=== PATIENT | female | born 1990 | race Caucasian/White ===

== ENCOUNTER → 2016-08-09 | Outpatient (CLI) | payer MEDICARE, OTHER ==
--- NOTE | 2016-08-09 10:24 | US ---
EXAMINATION TYPE: US OB <= 14 wk fetus DATE OF EXAM: 08/09/2016 9:49 AM COMPARISON: NONE CLINICAL HISTORY: Z34.00 Supervision of normal first . Positive beta-hCG test EXAM PERFORMED: Transabdominal (TA) pelvic ultrasound EXAM MEASUREMENTS: GESTATIONAL AGE / DATING Dates by LMP: (12 weeks/1 days) EDC: 02/20/2017 Dates by Current Scan: (12 weeks/3 days) EDC: 02/18/2017 MATERNAL ANATOMY Uterus: 12.7 x 9.0 x 5.9 cm Right Ovary: 2.9 x 1.5 x 1.4 cm Left Ovary: 2.7 x 1.2 x 1.4 cm Post CDS / Adnexa: no free fluid GESTATION / SURVEY CRL: 5.9 cm (12 weeks/3 days) MSD: not measured Yolk Sac (normal less than 6mm): not seen Heart Rate: 152 bpm Rhythm: Normal IUP: Viable IUP Date of LMP: 05/16/2016 Beta HcG (if available): not available TECHNOLOGIST IMPRESSION: single live IUP measuring 12 weeks 3 days Single live intrauterine gestation is confirmed as gestational sac and pole are seen. Yolk sac is not clearly identified. No free fluid is seen in pelvic cul-de-sac. Both ovaries are present. No suspicious extraovarian adnexal masses noted. IMPRESSION: Single live intrauterine gestation is identified. Mean crown-rump length is 5.9 cm corresponding to 1 2 weeks 3 day old fetus.
== END | disposition home or self-care (01) ==
LOC: RADUSWWP 08:57
PROVIDERS: ATTEND Obstetrics & Gynecology
DX: Z34.01 Encounter for supervision of normal first pregnancy, first trimester (principal); Z3A.12 12 weeks gestation of pregnancy
CPT/HCPCS: 76801

== ENCOUNTER 2016-11-04 16:06 | Emergency (ER) | payer MEDICARE, OTHER ==
[2016-11-04] MEDS ORDERED: SODIUM CHLORIDE 0.9% 1,000 ML IV STA (17:10)
--- NOTE | 2016-11-04 18:01 | ED ---
Dizziness HPI - General Chief Complaint: Dizziness Stated Complaint: Dizziness Time Seen by Provider: 11/04/16 17:09 Source: patient, RN notes reviewed, old records reviewed Mode of arrival: wheelchair Limitations: no limitations - History of Present Illness Initial Comments: This is a 26-year-old female with chief complaint of dizziness when she stands up. Patient states this only occurred for the past day. She reports that yesterday and today she did have a couple episodes of vomiting and diarrhea. She reports that she's not been able to drink very much fluid. Patient states that she has no fever or chills. She denies any chest pain or shortness of breath. Patient states that this is her second . This is her first resulted in a miscarriage. Patient denies any abdominal pain, dysuria, hematuria, back pain, headache, vision changes. Patient reports that her dizziness is worse with standing for long periods of time. She states that the room is not spinning but she just feels lightheaded. - Related Data Home Medications Medication Instructions Recorded Confirmed Metoclopramide [Reglan] 10 mg PO DAILY PRN 11/04/16 11/04/16 Pnv with Ca,No.72/Iron/FA 1 tab PO DAILY 11/04/16 11/04/16 [ Plus Tablet] Pseudoephedrine HCl [Sudafed] 60 mg PO Q4H PRN 11/04/16 11/04/16 diphenhydrAMINE HCL [Benadryl] 25 mg PO Q8H PRN 11/04/16 11/04/16 Allergies Allergy/AdvReac Type Severity Reaction Status Date / Time No Known Allergies Allergy Verified 11/04/16 17:28 Review of Systems ROS Statement: Those systems with pertinent positive or pertinent negative responses have been documented in the HPI. ROS Other: All systems not noted in ROS Statement are negative. Past Medical History Additional Past Medical History / Comment(s): Hepatitis C, MS History of Any Multi-Drug Resistant Organisms: None Reported Past Psychological History: Anxiety, Bipolar, PTSD Smoking Status: Current every day smoker Past Alcohol Use History: None Reported Past Drug Use History: None Reported General Exam - General Exam Comments Initial Comments: Well-appearing 26-year-old female. Patient does not appear to be in any acute distress. Limitations: no limitations General appearance: alert, in no apparent distress Head exam: Present: atraumatic, normocephalic, normal inspection Eye exam: Present: normal appearance, PERRL, EOMI. Absent: scleral icterus, conjunctival injection, periorbital swelling ENT exam: Present: normal exam, mucous membranes moist Neck exam: Present: normal inspection. Absent: tenderness, meningismus, lymphadenopathy Respiratory exam: Present: normal lung sounds bilaterally. Absent: respiratory distress, wheezes, rales, rhonchi, stridor Cardiovascular Exam: Present: regular rate, normal rhythm, normal heart sounds. Absent: systolic murmur, diastolic murmur, rubs, gallop, clicks GI/Abdominal exam: Present: soft, normal bowel sounds, other (Protuberant abdomen consistent with 24 weeks .). Absent: distended, tenderness, guarding, rebound, rigid Extremities exam: Present: normal inspection, full ROM, normal capillary refill. Absent: tenderness, pedal edema, joint swelling, calf tenderness Back exam: Present: normal inspection Neurological exam: Present: alert, oriented X3, CN II-XII intact Psychiatric exam: Present: normal affect, normal mood Skin exam: Present: warm, dry, intact, normal color. Absent: rash Course Vital Signs 11/04/16 11/04/16 11/04/16 16:13 17:27 18:55 Temperature 98.1 F Pulse Rate 102 H 98 Pulse Rate [ 103 H Sitting [employer]] Pulse Rate [ 105 H Standing] Pulse Rate [ 100 Supine [employer]] Respiratory 20 18 20 Rate Blood Pressure 142/74 115/65 Blood Pressure 129/75 [Right Arm Standing] Blood Pressure 119/65 [Right Arm Supine] Blood Pressure 117/75 [Sitting] O2 Sat by Pulse 98 98 Oximetry 11/04/16 20:15 Temperature 97.4 F L Pulse Rate 99 Pulse Rate [ Sitting [employer]] Pulse Rate [ Standing] Pulse Rate [ Supine [employer]] Respiratory 16 Rate Blood Pressure 127/77 Blood Pressure [Right Arm Standing] Blood Pressure [Right Arm Supine] Blood Pressure [Sitting] O2 Sat by Pulse 97 Oximetry Medical Decision Making - Medical Decision Making Patient is a well-appearing 26-year-old female chief complaint of 1 day of dizziness. She did have a multiple doses of vomiting and diarrhea yesterday. She reports that she's not been staying hydrated. Patient reports that the dizziness is worse with more prolonged periods of standing. Patient has negative orthostatic. Patient given IV fluids and reports she feels much better. She reports taht her dizziness has subsided. Patient agrees with treatment plan and will comply. - Lab Data Result diagrams: 11/04/16 18:00 11/04/16 18:00 Lab Results 11/04/16 11/04/16 11/04/16 Range/Units 18:00 18:00 18:00 WBC 13.1 H (3.8-10.6) k/uL RBC 3.77 L (3.80-5.40) m/uL Hgb 12.0 (11.4-16.0) gm/dL Hct 35.6 (34.0-46.0) % MCV 94.5 (80.0-100.0) fL MCH 31.8 (25.0-35.0) pg MCHC 33.6 (31.0-37.0) g/dL RDW 14.0 (11.5-15.5) % Plt Count 206 (150-450) k/uL Neutrophils % 77 % Lymphocytes % 15 % Monocytes % 5 % Eosinophils % 1 % Basophils % 0 % Neutrophils # 10.0 H (1.3-7.7) k/uL Lymphocytes # 2.0 (1.0-4.8) k/uL Monocytes # 0.6 (0-1.0) k/uL Eosinophils # 0.2 (0-0.7) k/uL Basophils # 0.0 (0-0.2) k/uL Sodium 135 L (137-145) mmol/L Potassium 4.0 (3.5-5.1) mmol/L Chloride 106 (98-107) mmol/L Carbon Dioxide 20 L (22-30) mmol/L Anion Gap 9 mmol/L BUN 8 (7-17) mg/dL Creatinine 0.46 L (0.52-1.04) mg/dL Est GFR (MDRD) Af Amer >60 (>60 ml/min/1.73 sqM) Est GFR (MDRD) Non-Af >60 (>60 ml/min/1.73 sqM) Glucose 87 (74-99) mg/dL Calcium 9.7 (8.4-10.2) mg/dL Total Bilirubin 0.5 (0.2-1.3) mg/dL AST 51 H (14-36) U/L ALT 75 H (9-52) U/L Alkaline Phosphatase 64 (38-126) U/L Troponin I <0.012 (0.000-0.034) ng/mL Total Protein 7.0 (6.3-8.2) g/dL Albumin 3.6 (3.5-5.0) g/dL Urine Color Urine Appearance (Clear) Urine pH (5.0-8.0) Ur Specific [place] (1.001-1.035) Urine Protein (Negative) Urine Glucose (UA) (Negative) Urine Ketones (Negative) Urine Blood (Negative) Urine Nitrite (Negative) Urine Bilirubin (Negative) Urine Urobilinogen (<2.0) mg/dL Ur Leukocyte Esterase (Negative) 11/04/16 Range/Units 18:00 WBC (3.8-10.6) k/uL RBC (3.80-5.40) m/uL Hgb (11.4-16.0) gm/dL Hct (34.0-46.0) % MCV (80.0-100.0) fL MCH (25.0-35.0) pg MCHC (31.0-37.0) g/dL RDW (11.5-15.5) % Plt Count (150-450) k/uL Neutrophils % % Lymphocytes % % Monocytes % % Eosinophils % % Basophils % % Neutrophils # (1.3-7.7) k/uL Lymphocytes # (1.0-4.8) k/uL Monocytes # (0-1.0) k/uL Eosinophils # (0-0.7) k/uL Basophils # (0-0.2) k/uL Sodium (137-145) mmol/L Potassium (3.5-5.1) mmol/L Chloride (98-107) mmol/L Carbon Dioxide (22-30) mmol/L Anion Gap mmol/L BUN (7-17) mg/dL Creatinine (0.52-1.04) mg/dL Est GFR (MDRD) Af Amer (>60 ml/min/1.73 sqM) Est GFR (MDRD) Non-Af (>60 ml/min/1.73 sqM) Glucose (74-99) mg/dL Calcium (8.4-10.2) mg/dL Total Bilirubin (0.2-1.3) mg/dL AST (14-36) U/L ALT (9-52) U/L Alkaline Phosphatase (38-126) U/L Troponin I (0.000-0.034) ng/mL Total Protein (6.3-8.2) g/dL Albumin (3.5-5.0) g/dL Urine Color Light Yellow Urine Appearance Clear (Clear) Urine pH 6.5 (5.0-8.0) Ur Specific [place] 1.008 (1.001-1.035) Urine Protein Negative (Negative) Urine Glucose (UA) Negative (Negative) Urine Ketones Negative (Negative) Urine Blood Negative (Negative) Urine Nitrite Negative (Negative) Urine Bilirubin Negative (Negative) Urine Urobilinogen <2.0 (<2.0) mg/dL Ur Leukocyte Esterase Negative (Negative) 11/04/16 18:02 EKG shows normal sinus rhythm. Ventricular rate 94 bpm. UT interval 140 ms. QRS ration edema 6. QT QTC 3/437. No evidence of ST elevation or T-wave inversion. No evidence of atrial or ventricular arrhythmias. Disposition Clinical Impression: Positional lightheadedness, Disposition: HOME SELF-CARE Condition: Good Instructions: Dizziness (ED) Additional Instructions: Patient advised to rest, remain hydrated. Follow-up with your primary care provider. Return to the emergency department if any alarming signs or symptoms occur. Referrals: Jing Castrejon MD [Primary Care Provider] - 1-2 days Time of Disposition: 19:31
[2016-11-04 18:18] LABS: Basophils % (A) 0 %; CH 32.8; Eosinophils # (A) 0.2 k/uL (0-0.7); Eosinophils % (A) 1 %; HCT 35.6 % (34.0-46.0); HDW 3.19; Luc # (Auto) 0.26; Luc % (Auto) 2; Lymphocytes % (A) 15 %; MCH 31.8 pg (25.0-35.0); MCHC 33.6 g/dL (31.0-37.0); MCV 94.5 fL (80.0-100.0); Mean Platelet Volume 9.4; Monocytes # (A) 0.6 k/uL (0-1.0); Monocytes % (A) 5 %; Neutrophils % (A) 77 %; RBC 3.77 m/uL (3.80-5.40); WBC 13.1 k/uL (3.8-10.6); WBC (Perox) 13.73
[2016-11-04 18:20] LABS: Appearance,Urine Clear (Clear); Bilirubin,Urine Negative (Negative); Glucose,Urine (UA) Negative (Negative); Ketones,Urine Negative (Negative); Leukocyte Esterase,Urine Negative (Negative); Nitrite,Urine Negative (Negative); PH, Urine 6.5 (5.0-8.0); Protein,Urine Negative (Negative); Specific Gravity,Urine 1.008 (1.001-1.035); UA Billing (MACRO vs. MICRO) CHEM; Urobilinogen,Urine <2.0 mg/dL (<2.0)
[2016-11-04 18:26] LABS: ALT 75 U/L (9-52); AST 51 U/L (14-36); Alkaline Phosphatase 64 U/L (38-126); Anion Gap 9 mmol/L; Blood Urea Nitrogen 8 mg/dL (7-17); Calcium 9.7 mg/dL (8.4-10.2); Carbon Dioxide 20 mmol/L (22-30); Chloride 106 mmol/L (98-107); Glucose 87 mg/dL (74-99); Non-African American GFR(MDRD) >60 (>60 ml/min/1.73 sqM); Sodium 135 mmol/L (137-145); Total Bilirubin 0.5 mg/dL (0.2-1.3)
[2016-11-04 20:16] VITALS: BP 127/77; PULSE 99; RESP 16; TEMP 97.4
== END 2016-11-04 20:15 | disposition home or self-care (01) ==
LOC: EC 16:06
DX: O99.89 Other specified diseases and conditions complicating pregnancy, childbirth and the puerperium (principal); R42 Dizziness and giddiness; O21.9 Vomiting of pregnancy, unspecified; R19.7 Diarrhea, unspecified; O99.332 Smoking (tobacco) complicating pregnancy, second trimester; F17.200 Nicotine dependence, unspecified, uncomplicated; Z79.899 Other long term (current) drug therapy; Z3A.24 24 weeks gestation of pregnancy
CPT/HCPCS: 36415; 80053; 81003; 84484; 85025; 93005; 96360; 96361; 99284

== ENCOUNTER → 2016-11-21 | Outpatient (CLI) | payer MEDICARE, OTHER ==
--- NOTE | 2016-11-09 19:30 | US ---
EXAMINATION TYPE: US OB anatomy transabd DATE OF EXAM: 11/09/2016 5:35 PM COMPARISON: US HISTORY: Z34.90 supervision of normal Anatomy survey TECHNIQUE: Transabdominal (TA) EXAM MEASUREMENTS: GESTATIONAL AGE / DATING Physician Established: (25 weeks/4 days) EDC: 02/18/2017 Dates by LMP: (25 weeks/2 days) EDC: 02/20/2017 Dates by First Scan: (25 weeks/4 days) EDC: 02/18/2017 Dates by Current Scan for: (27 weeks/0 days) EDC: 02/08/2017 SURVEY IUP: Single PLACENTA: fundal anterior; narrow portion noted mid placenta PREVIA: No previa ISAK: 16.3 cm Normal CERVICAL LENGTH (transabdominal: norm > 3.0cm): 3.8 cm BIOMETRY PRESENTATION: Breech LIE: Oblique BPD: 7.0 cm 28 weeks / 1 day HC: 25.4 cm 27 weeks / 4 days AC: 23.3 cm 27 weeks / 5 days FL: 5.0 cm 26 weeks / 5 days ESTIMATED WEIGHT IN GRAMS: 1067.0 grams ESTIMATED WEIGHT IN LBS/OZ: 2 lbs. 6 oz. WEIGHT PERCENTAGE BASED ON ESTABLISHED DATE: >97% % HC/AC: 1.09 Normal FL/AC: 21.3 Normal HEART RATE: 157 bpm RHYTHM: Normal ANATOMY SEEN (within normal limits): * Lateral Vent (< 1 cm) 0.9 cm * Cisterna Magna (< 1.1 cm) 0.57 cm * Nuchal Fold (< 0.6 cm) 0.5 cm * Cerebellum (varies with age) 2.9 cm Choroid Plexus (bilateral) Midline Falx Four Chamber Heart Stomach Situs Diaphragm Kidneys (bilateral) Bladder Cord Insert Three Vessel Cord Longitudinal Spine Transverse Spine Arms (bilateral) Legs (bilateral) ANATOMY SEEN (does not appear within normal limits): ANATOMY NOT SEEN: due to large body habitus and head facing posteriorly Cavus Septi Pellucidi Outflow tracts: LVOT/RVOT Nose / Lips MATERNAL WALL MEASUREMENT: 4.9 cm from skin to anterior uterine wall (if exam limited due to body lemus bitus). Single, live IUP,27 weeks/0 days, EDC: 02/08/2017; HR 157bpm. Patient is scheduled for OB callback for anatomy not seen due to active fetus and large maternal body habitus. IMPRESSION: weight is more than 97 percentile compared to the old exam of 08/09/2016. Macrosomia should be co nsidered.
--- NOTE | 2016-11-21 17:37 | US ---
EXAMINATION TYPE: US OB Call Back DATE OF EXAM: 11/21/2016 1:49 PM COMPARISON: Prior ultrasound 09 Nov 2016 CLINICAL HISTORY: OB Call Back. GESTATIONAL AGE / DATING Dates by Initial Survey Scan: (27 weeks/2 days) EDC: 02/18/17 HEART RATE: 147 bpm RHYTHM: Arrhythmia ANATOMY SEEN (second anatomic survey look): Cavus Septi Pellucidi: Outflow tracts:? LVOT/RVOT, the outflow tracts are somewhat obscured. Nose / Lips: MATERNAL WALL MEASUREMENT: 5.9 cm from skin to anterior uterine wall (if exam limited due to body lemus bitus). Very active fetus. IMPRESSION: Exam is somewhat limited. Additional findings above.
== END | disposition home or self-care (01) ==
LOC: RADUSWWP 11-09 16:22
PROVIDERS: ATTEND Obstetrics & Gynecology
DX: O36.62X0 Maternal care for excessive fetal growth, second trimester, not applicable or unspecified (principal); Z3A.25 25 weeks gestation of pregnancy
CPT/HCPCS: 76811

== ENCOUNTER 2017-01-02 19:35 | Outpatient (CLI) | payer MEDICARE, OTHER ==
[2017-01-02 20:05] VITALS: BP 140/80; PULSE 121; RESP 18; TEMP 96.2
[2017-01-02 20:30] LABS: Basophils % (A) 0 %; CH 32.3; CHCM 36.3; Eosinophils # (A) 0.1 k/uL (0-0.7); Eosinophils % (A) 1 %; HCT 33.6 % (34.0-46.0); HDW 3.43; HGB 12.7 gm/dL (11.4-16.0); Luc # (Auto) 0.21; Luc % (Auto) 2; Lymphocytes % (A) 16 %; MCHC 37.9 g/dL (31.0-37.0); MCV 89.9 fL (80.0-100.0); Mean Platelet Volume 10.7; Monocytes # (A) 0.6 k/uL (0-1.0); Monocytes % (A) 5 %; Neutrophils # (A) 9.6 k/uL (1.3-7.7); Neutrophils % (A) 77 %; Poikilocytosis Slight; RBC 3.73 m/uL (3.80-5.40); RDW 14.8 % (11.5-15.5); WBC 12.4 k/uL (3.8-10.6); WBC (Perox) 12.47
--- NOTE | 2017-01-02 21:50 | US ---
EXAMINATION TYPE: US OB >= 14 wk fetus DATE OF EXAM: 01/02/2017 COMPARISON: None CLINICAL HISTORY: bleedingBleeding TECHNIQUE: Transabdominal (TA) GESTATIONAL AGE / DATING Physician Established: (33 weeks/2 days) EDC: 02/18/2017 Dates by LMP: (33 weeks/0 days) EDC: 02/20/2017 Dates by First Scan: (33 weeks/2 days) EDC: 02/18/2017 Dates by Current Scan: (34 weeks/0 days) EDC: 02/13/2017 SURVEY IUP: Single PLACENTA: Anterior PREVIA: No Previa ISAK: 14.0 cm Normal CERVICAL LENGTH (transabdominal: norm > 3.0cm): 4.2 cm BIOMETRY PRESENTATION: Vertex BPD: 8.7 cm 35 weeks / 0 days HC: 30.1 cm weeks / days AC: 31.4 cm 35 weeks / 2 days FL: 6.7 cm 34 weeks / 2 days ESTIMATED WEIGHT IN GRAMS: 2518 grams ESTIMATED WEIGHT IN LBS/OZS: 5 lbs. 9 oz. WEIGHT PERCENTAGE BASED ON ESTABLISHED DATES: 85% HC/AC: 0.96 Normal FL/AC: 21.24 Normal HEART RATE: 181 bpm . RHYTHM: Normal MATERNAL WALL MEASUREMENT: 4.8 cm from skin to anterior uterine wall (if exam limited due to body hab itus). Viable single IUP measuring 34 weeks 0 days with a heart rate of 181bpm and an estimated delivery edwar e of 02/13/2017. Amniotic fluid index is 7 cm. There is no evidence for IUGR. IMPRESSION: There is satisfactory growth compared to first exam of 08/09/2016.
--- NOTE | 2017-01-02 21:51 | US ---
EXAMINATION TYPE: US OB TV Cervical Measurement DATE OF EXAM: 01/02/2017 COMPARISON: US REASON FOR EXAM: Per Ordering Physician?this transvaginal scan is to assess the CERVICAL LENGTH for i ncompetence or funneling. GESTATIONAL AGE / DATING Physician Established: (33 weeks/2 days) EDC: 02/18/2017 MATERNAL/ SURVEY CERVICAL LENGTH (transvaginal: norm> 2.5cm): 2.5 cm HEART RATE: 179 bpm RHYTHM: Normal IMPRESSION: This limited exam shows the cervix is closed and measures 2.5 cm.
--- NOTE | 2017-01-05 12:10 | P.MSEPDOC ---
Presenting Problems - Arrival Data Date of Arrival on Unit: 01/02/17 Time of Arrival on Unit: 19:35 Mode of Transport: Portable - Complaint OB-Reason for Admission/Chief Complaint: Vaginal Bleeding Comment: vag bleeding after intercourse, DOM Medical History - Information : 3 Para: 0 Term: 0 : 0 Abortions: Spontaneous or Elective: 2 Number of Living Children: 0 - Gestational Age Expected Date of Delivery: 02/18/17 Gestational Age by MADONNA (wks/days): 33 Weeks and 5 Days - History Complications: GDM, Smoker, Hx. Substance Abuse, Other Comment: DOM- pt of Dr Perera, failed 1hr GTT and has not redone 3hr GTT, hx of IV heroin use but clean since 01/13/2016, smoker, hep C as of december 2015, takes benadryl and sudafed daily Review of Systems - Review of Systems Constitutional: No problems Breast: No problems ENT: No problems Cardiovascular: No problems Respiratory: No problems Gastrointestinal: No problems Genitourinary: No problems Musculoskeletal: No problems Neurological: No problems Skin: No problems Vital Signs - Temperature Temperature: 96.2 F Temperature Source: Temporal Artery Scan - Pulse Right Pulse Rate: 121 Pulse Assessment Method: Pulse Oximetry - Respirations Respiratory Rate: 18 - Blood Pressure Right Arm Blood Pressure: 140/80 Blood Pressure Mean: 100 Blood Pressure Source: Automatic Cuff Medical Screen Scoring (Pre) - Cervical Exam Dilation: Exam Deferred Effacement: Exam Deferred - Uterine Contractions Frequency: N/A Duration: N/A Intensity: N/A - Maternal Vital Signs Maternal Temperature: N/A Signs of Preeclampsia: N/A Maternal Respirations: N/A - Assessment Baseline FHR: 140 Heart Rate - NICHD Category: Category I (Normal) = 0 NST: Reactive Position: N/A - Total Score Total Score (Pre): 0 - Level of Risk Level of Risk: Low (0-5) Physician Notification (Pre) - Physician Notified Physician Notified Date: 01/02/17 Physician Notified Time: 20:02 Physician/Practitioner Notifed:: Dr Clark New Order Received: Yes - Notification Comment Comment: orders for IV, u/s, hep lock, cbc, type and screen, KB Disposition - Disposition Discharge Date: 01/02/17 Discharge Time: 22:15 I agree with the RN Medical Screening Exam: No Physician's MSE Comment: incomplete disposition documentation Risk & Benefit of care provided described in d/c instruction: No Diagnosis: 33 WEEKS GESTATION OF
== END 2017-01-02 22:20 | disposition home or self-care (01) ==
LOC: FBPOP 19:35
PROVIDERS: ATTEND Obstetrics & Gynecology
DX: O99.89 Other specified diseases and conditions complicating pregnancy, childbirth and the puerperium (principal); N93.0 Postcoital and contact bleeding; Z3A.33 33 weeks gestation of pregnancy; O24.419 Gestational diabetes mellitus in pregnancy, unspecified control; O99.333 Smoking (tobacco) complicating pregnancy, third trimester; O09.33 Supervision of pregnancy with insufficient antenatal care, third trimester; Z86.19 Personal history of other infectious and parasitic diseases; F11.21 Opioid dependence, in remission; Z79.899 Other long term (current) drug therapy
CPT/HCPCS: 59025; 84112; 86900; 86901; 85025; 86850; 76805; 76817; G0463; 99213

== ENCOUNTER → 2020-04-14 | Outpatient (CLI) | payer MEDICARE, OTHER | END | disposition home or self-care (01) | LOC: LABWHC1 10:10 | PROVIDERS: ATTEND Family Medicine | DX: R05 Cough (principal); R50.9 Fever, unspecified | CPT/HCPCS: U0003; C9803 ==

== ENCOUNTER → 2020-08-20 | Outpatient (CLI) | payer OTHER ==
[2020-08-23 12:49] VITALS: BMI 42.6
== END | disposition home or self-care (01) ==
LOC: DBWHC3 11:40
PROVIDERS: ATTEND Nurse Practitioner Family
DX: R63.5 Abnormal weight gain (principal); Z86.32 Personal history of gestational diabetes
CPT/HCPCS: 97802

== ENCOUNTER → 2021-01-27 | Outpatient (CLI) | payer OTHER ==
--- NOTE | 2021-01-27 10:04 | US ---
EXAMINATION TYPE: US abdomen complete DATE OF EXAM: 01/27/2021 COMPARISON: NONE CLINICAL HISTORY: 30-year-old female B19.20 Unspecified viral hepatitis C without hepat. FINDINGS: EXAM MEASUREMENTS: Liver Length: 20.7 cm Gallbladder Wall: 0.3 cm CBD: 0.4 cm Spleen: 14.3 cm Right Kidney: 11.5 x 4.5 x 5.4 cm Left Kidney: 11.0 x 4.8 x 5.3 cm Kindergartner notes:technical limitations due to patient's body habitus and overlying bowel content Pancreas: Obscured by bowel gas Liver: enlarged, attenuating, heterogeneous. The secondary limits assessment for focal lesions. Gallbladder: No abnormal gallbladder distention, wall thickening, pericholecystic fluid, or shadowin g calculi. Evidence for sonographic Gann's sign: no CBD: appears wnl Spleen: enlarged Right Kidney: no evidence of hydronephrosis Left Kidney: no evidence of hydronephrosis Upper IVC: Obscured by overlying bowel gas Abd Aorta: Obscured by overlying bowel gas IMPRESSION: 1. Hepatomegaly (20.7 cm) with severe hepatic steatosis. The altered echogenicity secondarily limits assessment for focal lesions by ultrasound. 2. No gallstones or biliary ductal dilatation.
== END | disposition home or self-care (01) ==
LOC: RADUSWWP 07:51
PROVIDERS: ATTEND Family Medicine
DX: K76.0 Fatty (change of) liver, not elsewhere classified (principal)
CPT/HCPCS: 76700

== ENCOUNTER → 2021-02-22 | Outpatient (CLI) | payer OTHER ==
--- NOTE | 2021-02-22 11:07 | US ---
EXAMINATION TYPE: US liver DATE OF EXAM: 02/22/2021 COMPARISON: US 01/27/2021 CLINICAL HISTORY: B18.2 Chronic viral hep c. EXAM MEASUREMENTS: Liver Length: 12.9 cm Gallbladder Wall: 0.3 cm CBD: 0.4 cm Right Kidney: 11.9 x 4.5 x 4.9 cm Pancreas: Obscured by bowel gas Liver: difficult to penetrate Gallbladder: No stones seen Evidence for sonographic Gann's sign: No CBD: wnl Right Kidney: No hydronephrosis or masses seen IMPRESSION: 1. Nonspecific pattern of liver can be seen with hepatic steatosis, or diffuse hepatocellular disease including hepatitis correlate clinically.
== END | disposition home or self-care (01) ==
LOC: RADUSWWP 07:50
PROVIDERS: ATTEND Internal Medicine Gastroenterology
DX: B18.2 Chronic viral hepatitis C (principal)
CPT/HCPCS: 76705

== ENCOUNTER → 2021-03-30 | Outpatient (CLI) | payer OTHER ==
[2021-03-30 19:41] LABS: Basophils # (A) 0.03 X 10*3/uL (0.00-0.10); Basophils % (A) 0.4 %; Eosinophils # (A) 0.16 X 10*3/uL (0.04-0.35); Eosinophils % (A) 2.1 %; HCT 41.4 % (37.2-46.3); HGB 13.5 g/dL (12.0-15.0); Lymphocytes # (A) 1.88 X 10*3/uL (0.90-5.00); Lymphocytes % (A) 25.1 %; MCH 31.5 pg (27.0-32.0); MCHC 32.6 g/dL (32.0-37.0); MCV 96.7 fL (80.0-97.0); Mean Platelet Volume 12.9 fL (9.5-12.2); Monocytes # (A) 0.46 X 10*3/uL (0.20-1.00); Monocytes % (A) 6.1 %; Neutrophils # (A) 4.92 X 10*3/uL (1.80-7.70); Neutrophils % (A) 65.8 %; Platelet Count 194 X 10*3/uL (140-440); RBC 4.28 X 10*6/uL (4.10-5.20); RDW 12.3 % (11.5-14.5); WBC 7.49 X 10*3/uL (4.50-10.00)
[2021-04-01 20:26] LABS: ALT 85 U/L (8-44); AST 60 U/L (13-35); Albumin 4.4 g/dL (3.8-4.9); Albumin/Globulin Ratio 1.43 (1.60-3.17); Alkaline Phosphatase 78 U/L (41-126); Bilirubin, Conjugated <0.20 mg/dL (0.20-0.40); Globulin 3.1 g/dL (1.6-3.3); Total Protein 7.5 g/dL (6.2-8.2)
== END | disposition home or self-care (01) ==
LOC: LABWHC1 14:16
PROVIDERS: ATTEND Internal Medicine Gastroenterology
DX: B18.2 Chronic viral hepatitis C (principal)
CPT/HCPCS: 36415; 80076; 85025; 87340; 87522

== ENCOUNTER → 2021-04-08 | Outpatient (CLI) | payer OTHER | END | disposition home or self-care (01) | LOC: LABWHC1 08:30 | PROVIDERS: ATTEND Internal Medicine Gastroenterology | DX: B18.2 Chronic viral hepatitis C (principal) | CPT/HCPCS: 36415; 81596 ==